=== PATIENT | male | born 2000 | race Caucasian/White ===

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

== ENCOUNTER → 2023-04-14 | Outpatient (CLI) | payer BC ==
[~2023-04-14] MED LIST: Gadoterate 5 ML VIAL IV ONE; Iohexol 300 - 10 ML VIAL IV ONE
== END ==
LOC: COL.RAD 12:17
DX: M67.813 Other specified disorders of tendon, right shoulder (principal)
CPT/HCPCS: A9575; Q9967